=== PATIENT | male | born 1975 | race Caucasian/White ===

== ENCOUNTER 2021-06-12 19:57 | Inpatient (IN) | payer OTHER ==
[~2021-06-12] VITALS: Ht 182.9 cm; Wt 102.1 kg
[2021-06-12] MEDS ORDERED: WELLBUTRIN (20:06)
[2021-06-12] MEDS ORDERED: CLONAZEPAM (20:06)
[2021-06-12 20:30] LABS: HEMATOCRIT 40.1 % (36.7-47.1); MEAN CORPUSCULAR HEMOGLOBIN 28.9 uug (23.8-33.4); MEAN CORPUSCULAR VOLUME 86.2 fL (73.0-96.2); PLATELET COUNT (AUTO) 288 K/uL (152-348)
[2021-06-12 20:37] LABS: BILIRUBIN,DIRECT 0.1 mg/dL (0.0-0.2); BILIRUBIN,TOTAL 0.2 mg/dL (0.2-1.0); CREATININE 1.2 mg/dL (0.6-1.3); POTASSIUM 4.4 mmol/L (3.5-5.1); TOTAL PROTEIN, SERUM 7.2 g/dL (6.4-8.2)
[2021-06-12 21:06] LABS: MAGNESIUM 2.2 mg/dL (1.8-2.4)
[2021-06-12] MEDS ORDERED: CYANOCOBALAMIN 1000 MCG/ML VIAL IM ONE (21:30)
[2021-06-12] MEDS ORDERED: CYANOCOBALAMIN 1000 MCG/ML VIAL ONE (22:16)
[2021-06-13] MEDS ORDERED: SODIUM BICARBONATE 8.4% 50 MEQ/50 ML DISP.SYRIN IV ONE ×4 (07:06→11:15)
[2021-06-13] MEDS ORDERED: SODIUM BICARBONATE 8.4% 50 MEQ/50 ML VIAL IV ONE (07:15)
[2021-06-13] MEDS ORDERED: CALCIUM GLUCONATE IV 2 GM in IV DEXTROSE 5% 250 ML IV ONE (07:15)
[2021-06-13] MEDS ORDERED: CALCIUM GLUCONATE 1 GM/10 ML VIAL IV ONE (07:21)
[2021-06-13] MEDS ORDERED: MAGNESIUM SULFATE/D5W 200 ML ONE ×2 (07:22→08:37)
[2021-06-13] MEDS: MAGNESIUM SULFATE/D5W 100 ML IV SCH ×4 (07:27→08:56)
[2021-06-13 07:29] LABS: ETHANOL < 3 MG/DL (0-0)
[2021-06-13 07:30] LABS: ACETAMINOPHEN < 2.0 ug/mL (10-30)
[2021-06-13] MEDS ORDERED: LORAZEPAM 2 MG/1 ML VIAL IV ONE ×3 (07:30→12:45)
[2021-06-13] MEDS ORDERED: LORAZEPAM 2 MG/1 ML VIAL ONE ×3 (07:34→12:52)
[2021-06-13] MEDS ORDERED: MAGNESIUM SULFATE/D5W 100 ML ONE (07:53)
[2021-06-13 08:18] LABS: CREATININE 1.1 mg/dL (0.6-1.3); MAGNESIUM 2.3 mg/dL (1.8-2.4); TOTAL PROTEIN, SERUM 7.3 g/dL (6.4-8.2)
[2021-06-13] MEDS ORDERED: IV D5W-0.45% NS + KCL 30 MEQ/1000 ML BAG IV ONE (09:15)
[2021-06-13] MEDS ORDERED: MINERAL OIL/PETROLAT OPHT OINT 3.5 GM TUBE ONE (09:23)
[2021-06-13] MEDS ORDERED: MISCELLANEOUS MED XX ONE (09:30)
[2021-06-13] MEDS ORDERED: IV DEXTROSE 5W-0.45% NS + KCL 1,000 ML IV PRN (09:45)
[2021-06-13] MEDS ORDERED: IV DEXTROSE 5W-0.45% NS + KCL 1,000 ML IV ONE ×2 (09:45→09:47)
[2021-06-13] MEDS ORDERED: MAGNESIUM HYDROXIDE 30 ML LIQUID UDC PO PRN (10:30)
[2021-06-13] MEDS ORDERED: ONDANSETRON 4 MG/2 ML VIAL IV PRN (10:30)
[2021-06-13] MEDS ORDERED: ACETAMINOPHEN 325 MG TABLET PO PRN (10:30)
[2021-06-13] MEDS ORDERED: REMEDY ESSENTIAL ZINC PASTE 113 GM TP PRN (10:30)
[2021-06-13] MEDS: ENOXAPARIN SODIUM 40 MG/0.4 ML DISP.SYRIN SQ SCH (11:52)
[2021-06-13] MEDS ORDERED: ENOXAPARIN SODIUM 40 MG/0.4 ML DISP.SYRIN SQ ONE (11:58)
[2021-06-13 12:52] LABS: MAGNESIUM 2.8 mg/dL (1.8-2.4); POTASSIUM 3.3 mmol/L (3.5-5.1)
[2021-06-13] MEDS ORDERED: BUPR300T52 PO (12:56)
[2021-06-13] MEDS ORDERED: BUPR-96 PO (12:56)
[2021-06-13] MEDS ORDERED: FLUO10CA26 PO (12:57)
[2021-06-13] MEDS ORDERED: GABA300C PO (12:58)
[2021-06-13] MEDS ORDERED: LEVO1CAP10 PO (12:59)
[2021-06-13] MEDS ORDERED: DEXT20TA6 PO (12:59)
[2021-06-13] MEDS ORDERED: PIPERACILLIN SODIUM/TAZOBACTAM 4.5 G in IV DEXTROSE 5% 50 ML IV SCH (13:15)
[2021-06-13] MEDS ORDERED: PIPERACILLIN/TAZO 4.5 GM VIAL IV ONE (13:32)
[2021-06-13 14:00] LABS: *BILIRUBIN,URIN NEGATIVE (NEGATIVE); *CLARITY,URINE CLEAR (CLEAR); *COLOR,URINE YELLOW (YELLOW); *KETONES,URINE NEGATIVE (NEGATIVE); *UROBILINOGEN,URINE 0.2 E.U./dl (NORMAL); LEUKOCYTE ESTERASE ,URINE NEGATIVE (NEGATIVE); NITRITE, URINE NEGATIVE (NEGATIVE); PH,URINE 6.5 (5.0-8.0); UGLUCOSE NEGATIVE (NEGATIVE)
[2021-06-13 14:03] LABS: *BLOOD, URINE TRACE (NEGATIVE)
[2021-06-13 14:14] LABS: *AMPHETAMINE, URINE POSITIVE (NEGATIVE); *CANNABINOID, URINE NEGATIVE (NEGATIVE); *COCCAINE, URINE NEGATIVE (NEGATIVE); *OPIATE, URINE NEGATIVE (NEGATIVE); *PHENCYCLIDINE SCREEN,URINE NEGATIVE (NEGATIVE)
[2021-06-13 18:15] VITALS: BP 128/80
[2021-06-13] MEDS: POTASSIUM CHLORIDE 50 ML IV SCH ×4 (18:45→21:43)
[2021-06-13 19:24] LABS: WBC,URINE 0-3 /HPF (0-3)
[2021-06-13 19:25] LABS: BACTERIA,URINE FEW /HPF (NONE SEEN); SQUAMOUS EPITHELIAL CELL,UR FEW /HPF (NONE SEEN)
[2021-06-13 20:06] VITALS: BP 135/50
[2021-06-13] MEDS: LORAZEPAM 2 MG/1 ML VIAL IV PRN (20:51)
[2021-06-13] MEDS: PIPERACILLIN SODIUM/TAZOBACTAM 3.375 G in IV DEXTROSE 5% 100 ML IV SCH (22:13)
[2021-06-13 22:47] LABS: CREATININE 1.1 mg/dL (0.6-1.3); POTASSIUM 4.3 mmol/L (3.5-5.1)
[2021-06-14 00:03] VITALS: BP 126/69
[2021-06-14] MEDS: LORAZEPAM 2 MG/1 ML VIAL IV PRN ×2 (02:16→10:44)
[2021-06-14 04:06] VITALS: BP 109/74
[2021-06-14] MEDS: PIPERACILLIN SODIUM/TAZOBACTAM 3.375 G in IV DEXTROSE 5% 100 ML IV SCH (05:40)
[2021-06-14 06:19] LABS: HEMATOCRIT 41.8 % (36.7-47.1); MEAN CORPUSCULAR VOLUME 85.7 fL (73.0-96.2); PLATELET COUNT (AUTO) 314 K/uL (152-348)
[2021-06-14 06:24] LABS: MAGNESIUM 2.4 mg/dL (1.8-2.4); POTASSIUM 4.1 mmol/L (3.5-5.1)
[2021-06-14 08:00] VITALS: BP 122/73
[2021-06-14] MEDS: ENOXAPARIN SODIUM 40 MG/0.4 ML DISP.SYRIN SQ SCH (08:20)
[2021-06-14] MEDS: PANTOPRAZOLE SODIUM 40 MG VIAL IV SCH (08:20)
[2021-06-14 08:57] LABS: THYROID STIMULATING HORMONE 3.464 mIU/mL (0.358-3.740)
[2021-06-14] MEDS ORDERED: OLANZAPINE ZYDIS 5 MG TAB.RAPDIS PO PRN (11:15)
[2021-06-14] MEDS ORDERED: OLANZAPINE 10 MG VIAL IM PRN (11:15)
[2021-06-14 12:00] VITALS: BP 130/88
[2021-06-14] MEDS ORDERED: OLANZAPINE 10 MG VIAL IM ONE (14:45)
[2021-06-14 17:09] VITALS: BP 119/71
[2021-06-14] MEDS: OLANZAPINE 10 MG VIAL IM PRN (20:01)
[2021-06-14 20:10] VITALS: BP 147/72
[2021-06-15] VITALS: BP 116/86
[2021-06-15 04:08] VITALS: BP 118/77
[2021-06-15] MEDS: OLANZAPINE 10 MG VIAL IM PRN (04:38)
[2021-06-15 06:51] LABS: HEMATOCRIT 41.8 % (36.7-47.1); MEAN CORPUSCULAR HEMOGLOBIN 28.7 uug (23.8-33.4); MEAN CORPUSCULAR VOLUME 85.9 fL (73.0-96.2); PLATELET COUNT (AUTO) 332 K/uL (152-348)
[2021-06-15 07:09] LABS: MAGNESIUM 2.5 mg/dL (1.8-2.4); PHOSPHOROUS 3.3 mg/dL (2.5-4.9)
[2021-06-15] MEDS ORDERED: HALOPERIDOL LACTATE 5 MG/1 ML VIAL IM PRN (08:15)
[2021-06-15] MEDS: ENOXAPARIN SODIUM 40 MG/0.4 ML DISP.SYRIN SQ SCH (08:15)
[2021-06-15] MEDS ORDERED: BENZTROPINE MESYLATE 2 MG/2 ML AMPUL IM PRN (08:15)
[2021-06-15] MEDS: PANTOPRAZOLE SODIUM 40 MG VIAL IV SCH (08:16)
[2021-06-15 11:55] VITALS: BP 126/79
[2021-06-15 15:56] VITALS: BP 129/86
[2021-06-15 20:29] VITALS: BP 108/72
[2021-06-16 00:13] VITALS: BP 127/81
[2021-06-16 04:25] VITALS: BP 95/52
[2021-06-16 06:37] LABS: HEMATOCRIT 41.8 % (36.7-47.1); MEAN CORPUSCULAR HEMOGLOBIN 29.1 uug (23.8-33.4); MEAN CORPUSCULAR VOLUME 86.5 fL (73.0-96.2); PLATELET COUNT (AUTO) 339 K/uL (152-348)
[2021-06-16 06:49] LABS: CREATININE 1.2 mg/dL (0.6-1.3); MAGNESIUM 2.6 mg/dL (1.8-2.4); PHOSPHOROUS 4.7 mg/dL (2.5-4.9); POTASSIUM 3.8 mmol/L (3.5-5.1)
[2021-06-16] MEDS: PANTOPRAZOLE SODIUM 40 MG VIAL IV SCH (08:38)
[2021-06-16] MEDS: ENOXAPARIN SODIUM 40 MG/0.4 ML DISP.SYRIN SQ SCH (08:38)
[2021-06-16 11:55] VITALS: BP 109/73
[2021-06-17] MEDS ORDERED: PANTOPRAZOLE SODIUM 40 MG TABLET.DR PO SCH (07:00)
== END 2021-06-16 13:45 | disposition home or self-care (01) | DRG 917 ==
LOC: ER 19:57 → TRANSITION 06-13 11:30 → TELE3 06-13 16:40 → TELE-TD3 06-13 18:01 → TELE3 06-14 10:17
PROVIDERS: ADMIT Nurse Practitioner Family; ATTEND Registered Nurse
DX: T43.291A Poisoning by other antidepressants, accidental (unintentional), initial encounter (principal); G92.8 Other toxic encephalopathy; J69.0 Pneumonitis due to inhalation of food and vomit; Y92.019 Unspecified place in single-family (private) house as the place of occurrence of the external cause; E78.5 Hyperlipidemia, unspecified; F32.A Depression, unspecified; F41.9 Anxiety disorder, unspecified; R94.31 Abnormal electrocardiogram [ECG] [EKG]; F39 Unspecified mood [affective] disorder; F32.9 Major depressive disorder, single episode, unspecified; F90.9 Attention-deficit hyperactivity disorder, unspecified type; Z20.822 Contact with and (suspected) exposure to COVID-19
CPT/HCPCS: 36415; 70450; 71045; 83735; 83921; 84100; 84157; 84443; 84520; 85025; 86803; 87040; 87806; 93005; 95819; 97161; C1758; C9113; G0378; G0480; J0515; J0610; J1650; J2060; J2358; J2543; J3420; J3475; J3480; J3490; J7030; J7050; J7060